=== PATIENT | female | born 1945 | race Caucasian/White ===

== ENCOUNTER → 2017-01-04 | Outpatient (CLI) | payer MEDICARE, OTHER ==
--- NOTE | 2017-01-04 14:52 | MAM ---
History: Well woman exam. Date of exam: 01/04/2017 Services provided: Bilateral full field digital screening mammography. CAD, the images were reviewed with R2 computer aided detection. FINDINGS: Glandular tissue is scattered nodular parenchymal pattern with increased mammographic density is compared with 2013 exam. Stable parenchymal pattern. No dominant mass or architectural distortion. Bilateral scattered calcifications, stable. IMPRESSION: Benign exam Recommendation: Routine annual mammography BIRAD CATEGORY: 2 BENIGN Electronically signed by: Patricia Boykin MD 01/04/2017 2:52 PM CDT Workstation: [id number]
== END | disposition home or self-care (01) ==
LOC: MAMMO 10:02
PROVIDERS: ATTEND Obstetrics & Gynecology
DX: Z12.31 Encounter for screening mammogram for malignant neoplasm of breast (principal)

== ENCOUNTER → 2019-01-08 | Outpatient (CLI) | payer MEDICARE, OTHER ==
--- NOTE | 2019-01-15 16:10 | MAM ---
EXAM DESCRIPTION: 3D Screening BILATERAL : Digital Mammography. CLINICAL HISTORY: 73 years Female ANNUAL SCREENING . No complaints or personal history of breast cancer. Mother and sisters with breast cancer. Childbirth. Hysterectomy 25% is ago. Currently on organic HRT. Lifetime risk of developing breast cancer (Tyrer-Cuzick model)(%): 15.3. COMPARISON: 2-D digital screening bilateral mammography. 01/08/2017. TECHNIQUE: Bilateral CC and MLO projection full-field images, digital tomosynthesis mammographic technique. Bilateral digital 2-D full-field MLO images. CAD not available for tomosynthesis or 2-D images. FINDINGS: The breast parenchymal density pattern is: Heterogeneously dense breast tissue, which may obscure small masses. No skin thickening or nipple retraction. Bilateral axillary lymph nodes. Bilateral solitary microcalcifications. Large coarse calcification in the anterior superior left breast. Fibroglandular fibronodular type densities. Somewhat elongated irregular mass densities at the 12:00 position of the posterior third of the left breast abutting the chest wall. Not well visualized on the prior study. May represent scarring or reactive lymph nodes. No new focal, stellate mass or density, focal asymmetry , and no suspicious microcalcifications right breast. IMPRESSION: BI-RADS CATEGORY: 0 - INCOMPLETE- Need additional imaging evaluation. FOLLOW-UP: Recall for additional imaging: Full-field LM tomosynthesis left breast. Targeted left breast ultrasound.. Written communication concerning the IMPRESSION and Follow-up, will be mailed to the patient and referring health care provider. Electronically signed by: Omi King MD 01/15/2019 4:08 PM CDT
== END ==
LOC: MAMMO 15:00
PROVIDERS: ATTEND Obstetrics & Gynecology
DX: Z12.31 Encounter for screening mammogram for malignant neoplasm of breast (principal)

== ENCOUNTER → 2019-01-29 | Outpatient (CLI) | payer MEDICARE, OTHER ==
--- NOTE | 2019-01-29 16:46 | US ---
EXAM DESCRIPTION: 3D Diagnostic, Left (accession [id number]), digital mammography. Breast,Left (accession [id number]): Ultrasound CLINICAL HISTORY: 73 yearsFemaleABNORMAL MAMMO focal asymmetry posterior upper left breast at the chest wall. COMPARISON: Bilateral screening digital breast tomosynthesis 01/08/2019. TECHNIQUE: Left breast LM projection full-field images, digital mammographic tomosynthesis technique. CAD not available . Transcutaneous scanning of the posterior superior left breast utilizing palomo-scale and Doppler modes. Scanning performed by the fishing captain and Dr. King. FINDINGS: The breast parenchymal density pattern is: Scattered areas of fibroglandular density. No skin thickening or nipple retraction AP at the region of interest, focal asymmetry is again noted at approximately 12:00 position abutting the pectoral muscle in the left breast. Ultrasound: Scanning of the left breast 12:00 position, posterior chest wall. Mostly fatty tissue with fibroglandular tissues also present. No dominant solid mass or focal cysts. No large calcifications or parenchymal edema. Scanning of the left breast 1:00 position 4 cm from the nipple. Irregular echogenic structure with dense acoustic shadowing consistent with a large calcification measuring approximately 8 mm. This is visualized in the upper anterior breast on the tomosynthesis images. No dominant solid mass or distinct cyst. No parenchymal edema or overlying skin changes. IMPRESSION: Benign exam. BIRAD CATEGORY: 2 BENIGN FINDINGS. RECOMMENDATIONS: FOLLOW UP: Return to routine digital bilateral mammographic screening, one year interval from December 2018 Written communication explaining the IMPRESSION and follow-up, will be mailed to the patient and referring health care provider. The FINDINGS and the FOLLOW-UP plan were reviewed in person with the patient after the examination. According to the [employer], yearly mammograms are recommended starting at age 40 and continuing as long as a woman is in good health. Any breast change noted on a breast self-exam should be reported promptly to the patient's healthcare provider. Breast MRI is recommended for women with an approximately 20-25% or greater lifetime risk of breast cancer, including women with a strong family history of breast or ovarian cancer and women who have been treated for Hodgkin's disease. A negative mammographic report should not delay tissue diagnosis in patients with significant clinical history or physical findings. Extremely dense breast tissue limits the sensitivity of digital mammography. Electronically signed by: Omi King MD 01/29/2019 4:43 PM CDT
== END ==
LOC: US 14:00
PROVIDERS: ATTEND Obstetrics & Gynecology
DX: R92.8 Other abnormal and inconclusive findings on diagnostic imaging of breast (principal)
CPT/HCPCS: 76641; 77065; G0279